=== PATIENT | male | born 1965 | race Caucasian/White ===

== ENCOUNTER 2020-11-10 13:26 | Emergency (ER) | payer OTHER ==
[~2020-11-10 13:26] MED LIST: CLEOCIN HCL300 MG PO; FLOXIN 0.3% OTIC5 ML AD; HYDROCODON-ACE1 EAC2 PO; ONDANSETRON ODT4 MG PO
== END 2020-11-10 14:30 | disposition home or self-care (01) ==
LOC: ER1 13:26
DX: R07.9 Chest pain, unspecified (principal); F17.210 Nicotine dependence, cigarettes, uncomplicated; V86.59XA Driver of other special all-terrain or other off-road motor vehicle injured in nontraffic accident, initial encounter
CPT/HCPCS: 71045; 99284

== ENCOUNTER 2021-03-07 11:25 | Emergency (ER) | payer OTHER ==
[2021-03-07] MEDS ORDERED: NAPROXEN500 MG PO (13:19)
[2021-03-07] MEDS ORDERED: VOLTAREN ARTHRI20 GM TP (13:19)
== END 2021-03-07 13:25 | disposition home or self-care (01) ==
LOC: ER1 11:25
DX: M25.531 Pain in right wrist (principal); M25.532 Pain in left wrist
CPT/HCPCS: 73100; 96372; 99283; J1885

== ENCOUNTER 2021-03-10 16:21 | Emergency (ER) | payer OTHER ==
[~2021-03-10 16:21] MED LIST changes: +NAPROXEN500 MG PO; +VOLTAREN ARTHRI20 GM TP
[2021-03-10 17:20] LABS: HEMOGLOBIN 15.4 gm/dl (14.0-17.5); RED BLOOD COUNT 4.67 M/UL (4.20-5.50); WHITE BLOOD COUNT 12.9 K/UL (4.5-11.0)
[2021-03-10 17:48] LABS: BUN/CREATININE RATIO 23 (0-10)
== END 2021-03-10 18:00 | disposition left against medical advice (07) ==
LOC: ER1 16:21 → CDU 21:05
PROVIDERS: Emergency Medicine
DX: S93.401A Sprain of unspecified ligament of right ankle, initial encounter (principal); L03.113 Cellulitis of right upper limb; Z20.822 Contact with and (suspected) exposure to COVID-19; X50.0XXA Overexertion from strenuous movement or load, initial encounter
CPT/HCPCS: 71045; 73610; 80053; 83605; 83735; 83880; 84439; 84443; 85025; 86140; 87040; 93005; 96374; 99281; J3370; J7030; U0002

== ENCOUNTER 2022-02-10 00:17 | Emergency (ER) | payer OTHER ==
[2022-02-10] MEDS ORDERED: BENADRYL 50MG C50 MG PO (02:34)
[2022-02-10] MEDS ORDERED: ELIMITE 5% CREA60 GM TOP (02:34)
== END 2022-02-10 02:45 | disposition home or self-care (01) ==
LOC: ER1 00:17
DX: R21 Rash and other nonspecific skin eruption (principal); F17.210 Nicotine dependence, cigarettes, uncomplicated
CPT/HCPCS: 99282